=== PATIENT | female | born 1970 | race Caucasian/White ===

== ENCOUNTER 2016-08-28 12:00 | Inpatient (IN) | payer OTHER ==
--- NOTE | ~2016-08-28 | HP ---
Unit #: [id number] #: [id number] Patient: FARIDEH CAIN [id number] [place] [address] [id number] MR#: [id number] NAME: FARIDEH CAIN ROOM: P171 Age: 46 Sex: F Admission Date: 08/28/2016 : 1970 Attending Physician: Rob Lizama M.D. Admitting Physician: Rob Lizama M.D. Primary Care Physician: Saud Krishna M.D. HISTORY AND PHYSICAL HISTORY OF PRESENT ILLNESS The patient is a 46-year-old female admitted to [facility] on 08/28/2016 to detox from heroin. PAST MEDICAL HISTORY Migraines PAST SURGICAL HISTORY Hysterectomy. SOCIAL HISTORY She is unemployed. She lives with her aunt. She smokes one pack of cigarettes daily, uses one gram of heroin per day and Xanax daily. FAMILY MEDICAL HISTORY Noncontributory. ALLERGIES Penicillin, codeine. CURRENT MEDICATIONS Topamax. REVIEW OF SYSTEMS CONSTITUTIONAL: No fever or chills. HEENT: Denies any sore throat, ear pain or runny nose. CARDIOVASCULAR: Denies chest pain, irregular heart rhythm or palpitations. CHEST: Denies shortness of breath or cough. No hemoptysis. GASTROINTESTINAL: Denies nausea, vomiting, diarrhea or chronic constipation. ENDOCRINE: Denies history of increased thirst or urination. No recent significant weight loss or gain. GENITOURINARY: Denies dysuria, frequency, or hematuria. SKIN: Denies any rashes. HEMATOLOGIC: Denies history of increased bleeding or bruising. MUSCULOSKELETAL: Denies any hot, swollen joints. No generalized muscle pain. NEUROLOGIC: Denies problems with vision or speech. No frequent, severe headaches. No numbness, tingling or weakness in any extremities. Denies loss of bladder or bowel control. PHYSICAL EXAM GENERAL: She is awake, alert and oriented in no acute distress. Unit #: [id number] #: [id number] Patient: FARIDEH ACIN VITAL SIGNS: Temperature 97.6, heart rate 74, respiration 14, blood pressure 121/83. HEIGHT: 5'5". WEIGHT: 150 pounds. SKIN: Warm and dry without rash or lesion. HEENT: Normocephalic. TMs not viewed. Oral and nasal passages clear. Conjunctivae clear. PERRLA. EOMs intact. NECK: Supple without lymphadenopathy or thyromegaly. HEART: Regular rate and rhythm without murmur. LUNGS: Clear. ABDOMEN: Soft, nontender. : Not done. EXTREMITIES: No evidence of cyanosis, clubbing or edema. Moves all without focal deficit. NEUROLOGICAL: Grossly within normal limits. Cranial Nerves: II: Visual redmond are intact. III, IV AND : Extraocular movements are intact. Pupils are equal, round and reactive to light. V: Facial sensation is grossly normal. VII: Facial movements and expression are normal. VIII: Auditory acuity grossly intact. IX, X: Uvula is midline. Phonation is normal. XI: Patient shrugs shoulders and turns head normally. XII: Tongue protrudes in the midline. Sensory and Motor Function: Sensory and motor sensation is grossly normal. Motor: moves all extremities well. IMPRESSION 1. Psychiatric admission. 2. Heroin abuse. 3. Nicotine dependence. RECOMMENDATIONS Psychiatric per psychiatrist. MEDICAL: No contraindication to participate in facility activities. MEDICAL PROGNOSIS Good. MEDICAL CONDITION Stable. Dictated by... Nelson Figueroa/lisa TD: 08/31/2016 03:58 JOB #: [id number] Unit #: [id number] #: [id number] Patient: FARIDEH CAIN HISTORY AND PHYSICAL Page 1 of 1 X LATASHA STEWART APRN HISTORY AND PHYSICAL
--- NOTE | ~2016-08-28 | DS ---
Unit #: [id number] #: [id number] Patient: FARIDEH CAIN [id number] [place] [address] [id number] MR#: [id number] NAME: FARIDEH CAIN ROOM: P171 Age: 46 Sex: F Admission Date: 08/28/2016 : 1970 Discharge Date: 08/31/2016 Attending Physician: Rob Lizama M.D. Primary Care Physician: Saud Krishna M.D. DISCHARGE SUMMARY REASON FOR ADMISSION The patient is a 46-year-old white female, admitted to the [facility] unit with recurrent abuse of opioids and sedative hypnotics. HOSPITAL COURSE The patient was admitted to the [address] [place] [address] and placed on routine detoxification protocol for opioids and sedative hypnotics and was continued on Topamax 50 mg b.i.d. Her detox was smooth and uneventful one. By 08/31/2016, the patient requested discharge stating a wish to return to [place], [place] where she resided prior to returning to the [facility] and relapsing. Discharge was ordered. FINAL DIAGNOSES Opioid use disorder; sedative hypnotic use disorder; migraine headache by history. DISPOSITION ON DISCHARGE The patient is discharged on following medications: Topamax 50 mg b.i.d. for migraine prophylaxis. DISCHARGE INSTRUCTIONS No dietary or physical restrictions were placed upon the patient at the time of discharge. FOLLOWUP Followup will take place through the auspices of community mental health resources. PROGNOSIS The patient's prognosis is considered fair. Dictated by... Rob Lizama M.D. CB/tabitha TD: 08/31/2016 14:58 JOB #: [id number] Unit #: [id number] #: [id number] Patient: FARIDEH CAIN DISCHARGE SUMMARY Page 1 of 1 X Rob Lizama MD X DISCHARGE SUMMARY
--- NOTE | ~2016-08-28 | PN ---
Unit #: [id number] #: [id number] Patient: FARIDEH CAIN [id number] [facility] [address] [place] [address] [id number] I MR#: [id number] NAME: FARIDEH CAIN ROOM: 71 Age: 46 Sex: F Admission Date: 08/28/2016 : 1970 Attending Physician: Rob Lizama M.D. Admitting Physician: Rob Lizama M.D. Primary Care Physician: Harry Sevilla PROGRESS NOTES DATE 08/30/2016 DISCUSSION The patient is abed resting comfortably. Her CIWA scores have ranged in the five to eight ranging over the past 24 hours. We continue current treatment. I have encouraged increasing participation within the therapeutic milieu. Dictated by... Rob Lizama M.D. DANIEL/lisa TD: 08/31/2016 02:46 JOB #: [id number] [facility] PROGRESS NOTES Page 1 of 1 X Rob Lizama MD X PROGRESS NOTE
--- NOTE | ~2016-08-28 | PA ---
Unit #: [id number] #: [id number] Patient: FARIDEH CAIN [id number] [place] [address] [id number] MR#: [id number] NAME: FARIDEH CAIN ROOM: P171 Age: 46 Sex: F Admission Date: 08/28/2016 : 1970 Date of Assessment: 08/29/2016 Attending Physician: Rob Lizama M.D. Admitting Physician: Rob Lizama M.D. Primary Care Physician: Saud Krishna M.D. PSYCHIATRIC ASSESSMENT IDENTIFYING INFORMATION The patient is a 46-year-old white female admitted with recent relapse of opioid and sedative/hypnotic abuse. INFORMANT(S) Patient. RELIABILITY Fair. CHIEF COMPLAINT None given. HISTORY OF PRESENT ILLNESS The patient is a 46-year-old white female admitted after she had presented to this facility voicing positive suicidal ideation related to a recent relapse of heroin and Xanax abuse. The patient was reporting hopelessness related to her recent relapse after having been clean for 16 months. The patient does admit to use of 2 grams of IV heroin daily as well as half a "bar" of Xanax. The patient reports that she has been living with other people who are drug addicts. She does have a history of suicide attempt in 2011 and continues to endorse positive suicidal ideation with plan to overdose on heroin. PAST PSYCHIATRIC HISTORY As above. The patient did undergo residential chemical dependence treatment program in [place] and did maintain sobriety until learning of the of her sister several months ago. FAMILY HISTORY Noncontributory. SOCIAL HISTORY The patient "lives with a bunch of drug addicts." MEDICAL HISTORY Noncontributory. MEDICATION HISTORY Topamax. ALLERGIES Penicillin, codeine. Unit #: [id number] #: [id number] Patient: FARIDEH CAIN SUBSTANCE ABUSE HISTORY As noted previously. MENTAL STATUS EXAM At this time, reveals the patient to be a soundly sleeping white female who cannot be aroused for interview. ASSETS AND LIABILITIES Patient's assets to be assessed. Liabilities, ongoing substance use. ADMITTING DIAGNOSES 1. Opioid use disorder. 2. Sedative/hypnotic use disorder. 3. Dysthymic disorder. PSYCHIATRIC PLAN/TREATMENT GOALS The patient remains hospitalized for safety and stabilization. Routine detoxification protocol for opioids and sedative/hypnotics has been initiated. The patient will participate in appropriate quinones and milieu activities. DISCHARGE PLANNING Follow up to take place through the auspices of [facility]. ESTIMATED LENGTH OF STAY Five to seven days. Dictated by... Rob Lizama M.D. DANIEL/bisi TD: 08/29/2016 14:01 JOB #: [id number] PSYCHIATRIC ASSESSMENT Page 1 of 1 X Rob Lizama MD X PSYCHIATRIC ASSESSMENT
[2016-08-29 11:34] LABS: BASOPHIL# 0.1 X10e3 (0-0.3); BASOPHIL% 0.7 % (0-2.5); EOSINOPHIL# 0.1 X10e3 (0-0.7); EOSINOPHIL% 1.5 % (0.0-7.0); HEMATOCRIT 45.5 % (35.0-45.0); HEMOGLOBIN 15.1 gm/dL (12.0-16.0); LYMPHOCYTE# 2.7 X10e3 (1.0-3.5); LYMPHOCYTE% 34.3 % (17.0-45.0); MEAN CELL VOLUME 88.9 FL (83-96); MEAN CORPUSCULAR HEMOGLOBIN 29.6 PG (28-34); MEAN CORPUSCULAR HGB CONC 33.2 g/dL (30-36); MEAN PLATELET VOLUME 9.4 FL (6.5-11.5); MONOCYTE# 0.4 X10e3 (0-1.0); MONOCYTE% 5.5 % (3.0-12.0); NEUTROPHIL# 4.5 X10e3 (1.5-7.1); PLATELET COUNT 213 X10e3 (140-420); RED BLOOD COUNT 5.12 X10e (3.90-5.30); RED CELL DISTRIBUTION WIDTH 12.9 % (11.0-15.5); WHITE BLOOD COUNT 7.8 X10e3 (4.0-10.5)
[2016-08-29 11:38] LABS: DIFF IND NO
[2016-08-29 11:45] LABS: ALBUMIN SERUM 3.6 g/dL (3.5-5.0); BUN/CREATININE RATIO 16.25; CALCIUM SERUM 9.4 mg/dL (8.4-10.2); CREATININE SERUM 0.8 mg/dL (0.6-1.4); GLOM FILT RATE Estimated 87.9 mL/min (>60); PROTEIN TOTAL SERUM 5.9 g/dL (6.0-8.3)
[2016-09-01 10:02] LABS: URINE APPEARANCE TURBID; URINE BILIRUBIN NEG (NEG); URINE BLOOD NEG (NEG); URINE COLOR YELLOW; URINE GLUCOSE NEG (NEG); URINE KETONE NEG (NEG); URINE LEUKOCYTE ESTERASE NEG (NEG); URINE NITRATE NEG (NEG); URINE PH 7.5 (5-8); URINE PROTEIN NEG (NEG); URINE SPECIFIC GRAVITY 1.018 (1.003-1.035); URINE UROBILINOGEN 0.2 MG/DL (NEG)
[2016-09-01 10:24] LABS: AMPHETAMINE NEG (NEG); BARBITURATES NEG (NEG); BENZODIAZEPINES POS (NEG); COCAINE NEG (NEG); MARIJUANA NEG (NEG); OPIATES NEG (NEG); TRICYCLIC ANTIDEPRESSANTS NEG (NEG); U METHADONE NEG (NEG)
== END 2016-08-31 15:49 | disposition home or self-care (01) | DRG 897 ==
LOC: P1E 14:57
PROVIDERS: Specialist
PROC: HZ2ZZZZ Detoxification Services for Substance Abuse Treatment (ICD-10-PCS; principal; 2016-08-28)
DX: F11.10 Opioid abuse, uncomplicated (principal); R45.851 Suicidal ideations; F13.10 Sedative, hypnotic or anxiolytic abuse, uncomplicated; F34.1 Dysthymic disorder; Z88.0 Allergy status to penicillin; Z88.5 Allergy status to narcotic agent; F17.210 Nicotine dependence, cigarettes, uncomplicated; Z90.710 Acquired absence of both cervix and uterus
CPT/HCPCS: 80053; 80307; 81003; 85025; 86592